=== PATIENT | female | born 1985 | race American Indian/Alaskan Native ===

== ENCOUNTER 2016-08-15 16:07 | Emergency (ER) | payer OTHER ==
[2016-08-15] MEDS ORDERED: NORVASC PO ONE (17:01)
--- NOTE | 2016-08-15 17:01 | Emergency Department Report ---
Chief Complaint: Headache Stated Complaint: MIGRAINE/ANXIETY Time Seen by Provider: 08/15/16 16:52 - HPI History of Present Illness: 30-year-old female comes in for complaint of migraines 3 days. Patient reports that she is he takes Excedrin for migraines usually helps but not at this time. She does admit to nausea but no vomiting. She does admit that she' s been drinking plenty of fluids. She does report having a history of hypertension on lisinopril 10 a hydrochlorothiazide 12.5. LMP 08/09/16 - Exam Vital Signs: Vital Signs 08/15/16 16:15 Temperature 98.6 F Pulse Rate 85 Respiratory 16 Rate Blood Pressure 184/127 O2 Sat by Pulse 99 Oximetry Physical Exam: Patient's alert and oriented 3 cardiovascular S1-S2 regular rate and rhythm respiratory clear to auscultation bilateral MSE screening note: Focused history and physical exam performed. Due to findings the following was ordered: Patient be evaluated in the main ER. ED Disposition for MSE Condition: Stable
[2016-08-16] MEDS ORDERED: MORPHINE IV ONE (02:56)
--- NOTE | 2016-08-16 03:42 | Emergency Department Report ---
HPI - General Chief Complaint: Headache Time Seen by Provider: 08/15/16 16:52 - HPI HPI: This is a 30-year-old Afro-[place]ish female presents to the emergency department , after being dropped off, with complaint of a migraine headache has been going on intermittently for the past 3 days. Patient says it is a left-sided throbbing sensation. She has a history of migraines but does not take anything prophylactically. She tried some Excedrin and Tylenol for her symptoms without any relief. She says she gets this migraine headache about 1-2 times per month. She denies any vision change, nausea, vomiting, fever, photophobia or any neurological deficits. Patient presents with elevated blood pressure but does have a history of hypertension. Her primary care doctor is a Dr. Rodriguez. No recent travel or sick contacts at home. ED Past Medical Hx - Past Medical History Hx Hypertension: Yes Hx Asthma: Yes - Social History Smoking Status: Never Smoker Substance Use Type: None - Medications Home Medications: Home Medications Medication Instructions Recorded Confirmed Last Taken Type Albuterol Sulfate [Ventolin HFA] 2 puff IH Q4H PRN #1 hfa.aer.ad 10/05/15 Unknown Rx Lisinopril/Hydrochlorothiazide 1 tab PO QDAY #30 tablet 10/05/15 08/16/16 Unknown Rx [Zestoretic 10-12.5 mg] ED Review of Systems ROS: Stated complaint: MIGRAINE/ANXIETY Other details as noted in HPI Comment: All other systems reviewed and negative Constitutional: denies: chills, fever Eyes: denies: eye pain, eye discharge, vision change ENT: denies: ear pain, throat pain Respiratory: denies: cough, shortness of breath, wheezing Cardiovascular: denies: chest pain, palpitations Gastrointestinal: denies: abdominal pain, nausea, diarrhea Genitourinary: denies: urgency, dysuria, discharge Musculoskeletal: denies: back pain, joint swelling, arthralgia Skin: denies: rash, lesions Neurological: headache. denies: weakness, paresthesias Physical Exam - Physical Exam Vital Signs: Vital Signs 08/15/16 08/15/16 08/16/16 16:15 17:05 00:09 Temperature 98.6 F 98.5 F Pulse Rate 85 72 Respiratory 16 20 Rate Blood Pressure 184/127 184/127 Blood Pressure 184/109 [Left] O2 Sat by Pulse 99 100 Oximetry Physical Exam: GENERAL: The patient is well-developed well-nourished. HEENT: Normocephalic. Atraumatic. Extraocular motions are intact. Patient has moist mucous membranes. Pupils equal reactive to light bilaterally. No nystagmus. NECK: Supple. Trachea is midline. CHEST/LUNGS: Clear to auscultation. There is no respiratory distress noted. HEART/CARDIOVASCULAR: Regular. There is no tachycardia. There is no gallop rub or murmur. ABDOMEN: Abdomen is soft, nontender. Patient has normal bowel sounds. There is no abdominal distention. Morbidly obese habitus. SKIN: There is no rash. There is no diaphoresis. NEURO: The patient is awake, alert, and oriented. The patient is cooperative. The patient has no focal neurologic deficits. The patient has normal speech. Cranial nerves II through XII grossly intact. No gait abnormalities. MUSCULOSKELETAL: There is no tenderness or deformity. There is no limitation range of motion. There is no evidence of acute injury. ED Course Vital Signs 08/15/16 08/15/16 08/16/16 16:15 17:05 00:09 Temperature 98.6 F 98.5 F Pulse Rate 85 72 Respiratory 16 20 Rate Blood Pressure 184/127 184/127 Blood Pressure 184/109 [Left] O2 Sat by Pulse 99 100 Oximetry ED Medical Decision Making - Medical Decision Making 30-year-old female presents with 3 day history of left-sided intermittent headache that appears consistent with previous migraines. Patient also presents with elevated blood pressure. Patient does not have any focal, motor or sensory deficits. Cranial nerves are intact. Patient was seen ambulatory in the emergency department and appears stable. Since this is consistent with the patient's previous migraine headaches, I did not feel that any CT imaging of the head was necessary at this time. Patient was given a single dose of pain medication and her blood pressure came down to a much more reasonable level , and the patient says that her headache completely resolved down to a 0 out of 10 on the pain scale. Patient appears stable and safe for discharge home at this time. She will follow-up with her primary care doctor and return to the ER with any worsening of her symptoms or any acute distress. - Differential Diagnosis migraine, tension headache, cluster headache, hypertensive urgency Critical Care Time: No Critical care attestation.: If time is entered above; I have spent that time in minutes in the direct care of this critically ill patient, excluding procedure time. ED Disposition Clinical Impression: Hypertension Qualifiers: Hypertension type: essential hypertension Qualified Code(s): I10 - Essential ( primary) hypertension Migraine headache Qualifiers: Migraine type: unspecified Status migrainosus presence: without status migrainosus Intractability: not intractable Qualified Code(s): G43.909 - Migraine, unspecified, not intractable, without status migrainosus Disposition: DISCHARGED TO HOME OR SELFCARE Is pt being admited?: No Condition: Good Instructions: Hypertension (ED), Migraine Headache (ED) Additional Instructions: Please follow-up with your primary care doctor in the next few days. Return to the emergency department with any worsening of your symptoms or any acute distress. Please try to stay away from foods that are high in salt and caffeinated products to assist with your elevated blood pressure. Keep a blood pressure log. Referrals: PRIMARY CAREMD [Primary Care Provider] - 3-5 Days Time of Disposition: 05:00
[2016-08-16] MEDS ORDERED: APRESOLINE IV ONE (04:42)
[2016-08-16 04:50] VITALS: BP 166/93
== END 2016-08-16 05:16 | disposition home or self-care (01) ==
LOC: ED 16:07
DX: G43.909 Migraine, unspecified, not intractable, without status migrainosus (principal); I10 Essential (primary) hypertension; J45.909 Unspecified asthma, uncomplicated
CPT/HCPCS: 96374; 99283; J2270

== ENCOUNTER 2016-12-08 12:54 | Emergency (ER) | payer OTHER ==
[2016-12-08] MEDS ORDERED: TYLENOL ONE (13:36)
[2016-12-08] MEDS ORDERED: TYLENOL PO ONE (13:37)
[2016-12-08] MEDS ORDERED: BICILLIN L-A IM ONE (14:47)
[2016-12-08] MEDS ORDERED: TORADOL IM ONE (14:47)
--- NOTE | 2016-12-08 14:57 | Emergency Department Report ---
ED ENT HPI - General Chief complaint: Sore Throat Stated complaint: PAIN TO SWALLOW/BODY ACHES Time Seen by Provider: 12/08/16 14:34 Source: patient Mode of arrival: Ambulatory Limitations: No Limitations - History of Present Illness Initial comments: PT c//o sore throat and congestion x 3 days. PT states she tried Alkeseltzer plus last night and she had tylnol this am at 0630 but no improvement. Pt also states she gets frequent raw spots under her arms and she has them now. PT states she does not know what they are. PT denies sick contacts. 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 denies: cough, rhinorrhea - Related Data Previous Rx's Medication Instructions Recorded Last Taken Type Albuterol Sulfate [Ventolin HFA] 2 puff IH Q4H PRN #1 hfa.aer.ad 10/05/15 Unknown Rx Lisinopril/Hydrochlorothiazide 1 tab PO QDAY #30 tablet 10/05/15 Unknown Rx [Zestoretic 10-12.5 mg] Clindamycin [Clindamycin CAP] 300 mg PO Q8H #21 cap 12/08/16 Unknown Rx Allergies Allergy/AdvReac Type Severity Reaction Status Date / Time No Known Allergies Allergy Unverified 08/15/16 16:22 ED Dental HPI - General Chief complaint: Sore Throat Stated complaint: PAIN TO SWALLOW/BODY ACHES Time Seen by Provider: 12/08/16 14:34 Source: patient Mode of arrival: Ambulatory Limitations: No Limitations - Related Data Previous Rx's Medication Instructions Recorded Last Taken Type Albuterol Sulfate [Ventolin HFA] 2 puff IH Q4H PRN #1 hfa.aer.ad 10/05/15 Unknown Rx Lisinopril/Hydrochlorothiazide 1 tab PO QDAY #30 tablet 10/05/15 Unknown Rx [Zestoretic 10-12.5 mg] Clindamycin [Clindamycin CAP] 300 mg PO Q8H #21 cap 12/08/16 Unknown Rx Allergies Allergy/AdvReac Type Severity Reaction Status Date / Time No Known Allergies Allergy Unverified 08/15/16 16:22 ED Review of Systems ROS: Stated complaint: PAIN TO SWALLOW/BODY ACHES Other details as noted in HPI Comment: All other systems reviewed and negative Constitutional: fever, malaise. denies: chills ENT: throat pain, congestion. denies: ear pain Respiratory: denies: cough Gastrointestinal: denies: abdominal pain, nausea, vomiting, diarrhea Genitourinary: denies: dysuria Musculoskeletal: myalgia Skin: rash ED Past Medical Hx - Past Medical History Hx Hypertension: Yes Hx Asthma: Yes - Surgical History Past Surgical History?: No - Social History Smoking Status: Never Smoker Substance Use Type: Alcohol - Medications Home Medications: Home Medications Medication Instructions Recorded Confirmed Last Taken Type Albuterol Sulfate [Ventolin HFA] 2 puff IH Q4H PRN #1 hfa.aer.ad 10/05/15 Unknown Rx Lisinopril/Hydrochlorothiazide 1 tab PO QDAY #30 tablet 10/05/15 08/16/16 Unknown Rx [Zestoretic 10-12.5 mg] Clindamycin [Clindamycin CAP] 300 mg PO Q8H #21 cap 12/08/16 Unknown Rx ED Physical Exam - General Limitations: No Limitations General appearance: alert, in no apparent distress, obese - Head Head exam: Present: atraumatic, normocephalic, normal inspection - Eye Eye exam: Present: normal appearance, EOMI. Absent: conjunctival injection - ENT ENT exam: Present: mucous membranes moist, TM's normal bilaterally, normal external ear exam - Expanded ENT Exam Expanded Mouth exam: Absent: drooling, trismus Throat exam: Positive: tonsillar erythema, tonsillomegaly, tonsillar exudate. Negative: R peritonsillar mass, L peritonsillar mass - Neck Neck exam: Present: normal inspection, tenderness, full ROM, lymphadenopathy. Absent: meningismus - Respiratory Respiratory exam: Present: normal lung sounds bilaterally. Absent: respiratory distress, wheezes, rales, rhonchi, stridor, chest wall tenderness - Cardiovascular Cardiovascular Exam: Present: normal rhythm, tachycardia - GI/Abdominal GI/Abdominal exam: Present: soft. Absent: tenderness - Extremities Exam Extremities exam: Present: normal inspection, full ROM. Absent: pedal edema - Back Exam Back exam: Present: normal inspection, full ROM. Absent: tenderness, CVA tenderness (R), CVA tenderness (L), muscle spasm, paraspinal tenderness, vertebral tenderness - Neurological Exam Neurological exam: Present: alert, oriented X3 - Psychiatric Psychiatric exam: Present: normal affect - Skin Skin exam: Present: warm, dry, normal color, other (oscar hidradenitis) ED Course Vital Signs 12/08/16 12/08/16 12/08/16 13:33 13:40 15:11 Temperature 101.9 F H Pulse Rate 106 H Respiratory 16 16 18 Rate Blood Pressure 150/109 Blood Pressure [Right] O2 Sat by Pulse 98 Oximetry 12/08/16 16:50 Temperature 100.5 F H Pulse Rate 83 Respiratory 20 Rate Blood Pressure Blood Pressure 146/102 [Right] O2 Sat by Pulse 96 Oximetry VS improved sp medication. PT is aware she should take her bp medication daily. - Reevaluation(s) Reevaluation #1: 12/08/16 15:03 PT aware of plan of care. No questions at this time Reevaluation #2: 12/08/16 16:19 PT states she is feeling better. PT aware of plan of care. No questions at this time. - Pulse Oximetry Interpretation Digit-Finger Initial Pulse Oximetry Readin Actions Taken: none ED Medical Decision Making - Differential Diagnosis strep pharyngitis, viral illness, abscess Critical Care Time: No Critical care attestation.: If time is entered above; I have spent that time in minutes in the direct care of this critically ill patient, excluding procedure time. ED Disposition Clinical Impression: Exudative pharyngitis, Hidradenitis suppurativa of left axilla, Hidradenitis suppurativa of right axilla Disposition: DISCHARGED TO HOME OR SELFCARE Is pt being admited?: No Does the pt Need Aspirin: No Condition: Stable Instructions: Strep Throat (ED), Abscess (ED) Additional Instructions: follow up with Surgeon or earrings fabricator for your skin condition Warm compresses to both armpits Take your bp medication daily Return to ED if worsening or concerns. OTC Motrin/ Tylenol as needed for pain Your sore throat is likely due to Strep throat and is contagious. Wash all of your dishes/ cups and change your toothbrush Prescriptions: Clindamycin [Clindamycin CAP] 300 mg PO Q8H #21 cap Referrals: PRIMARY CARE, [Primary Care Provider] - 3-5 Days SIVAN RUDOLPH MD [Staff Physician] - 3-5 Days KELLIE MOON MD [Staff Physician] - 3-5 Days Forms: Work/School Release Form(ED) Time of Disposition: 16:20
[2016-12-08 16:52] VITALS: BP 146/102
== END 2016-12-08 16:50 | disposition home or self-care (01) ==
LOC: ED 12:54
DX: L73.2 Hidradenitis suppurativa (principal); J02.9 Acute pharyngitis, unspecified; J45.909 Unspecified asthma, uncomplicated
CPT/HCPCS: 96372; 99282; J0561; J1885

== ENCOUNTER 2017-06-18 08:58 | Emergency (ER) | payer OTHER ==
--- NOTE | 2017-06-18 09:24 | Emergency Department Report ---
Chief Complaint: Anxiety Stated Complaint: ANXIETY - HPI History of Present Illness: p isia 31 y/o aam with hx of depression and htn, on selexa 20, lisonpril/hct: 20/25 mg po daily advises complaint with same , states increased paranoia , verbal altercation with coworkers, paranoia triggered buy loud noises, denies SI or HI but " I can't take it any more I know something is going to happen, I need help" denies other symptoms no h/a no dizziness, no headache, no light headedness no cp no sob. denies substance - Exam Vital Signs: Vital Signs 06/18/17 09:01 Temperature 99 F Pulse Rate 85 Respiratory 16 Rate Blood Pressure 195/123 O2 Sat by Pulse 100 Oximetry MSE screening note: Focused history and physical exam performed. Due to findings the following was ordered: ED Disposition for MSE Condition: Stable
[2017-06-18 10:06] LABS: Basophils % (Auto) 0.7 % (0.0-1.8); Eosinophils % (Auto) 0.4 % (0.0-4.3); Hematocrit 42.4 % (30.3-42.9); Hemoglobin 14.2 gm/dl (10.1-14.3); Mean Corpuscular HGB Conc 34 % (30-34); Mean Corpuscular Hemoglobin 29 pg (28-32); Mean Corpuscular Volume 86 fl (79-97); Platelet Count 278 K/mm3 (140-440); Red Blood Count 4.96 M/mm3 (3.65-5.03); Red Cell Distribution Width 14.2 % (13.2-15.2); White Blood Count 16.2 K/mm3 (4.5-11.0)
[2017-06-18 10:28] LABS: Alanine Aminotransferase 13 units/L (7-56); Albumin 4.1 g/dL (3.9-5); Albumin/Globulin Ratio 1.2 %; Alkaline Phosphatase 72 units/L (35-129); Anion Gap 20 mmol/L; BUN/Creatinine Ratio 23; Blood Urea Nitrogen 14 mg/dL (7-17); Calcium 9.1 mg/dL (8.4-10.2); Carbon Dioxide 21 mmol/L (22-30); Chloride 99.5 mmol/L (98-107); Glucose 203 mg/dL (65-100); Potassium 3.7 mmol/L (3.6-5.0); Sodium 137 mmol/L (137-145); Total Protein 7.5 g/dL (6.3-8.2)
[2017-06-18 12:01] VITALS: BP 178/122
[2017-06-18] MEDS: CATAPRES PO ONE (12:40)
[2017-06-18 12:49] LABS: Urine Drugs of Abuse Note Disclamer
[2017-06-18 12:59] LABS: Bacteria,Urine 1+ /HPF (Negative); Bilirubin,Urine NEG (Negative); Blood,Urine NEG (Negative); Ketones,Urine NEG (Negative); Leukocyte Esterase,Urine SM (Negative); Mucus,Urine FEW /HPF; Nitrite,Urine NEG (Negative); Urobilinogen,Urine < 2.0 mg/dL (<2.0)
--- NOTE | 2017-06-18 13:26 | Emergency Department Report ---
ED Psych HPI - General Chief Complaint: Anxiety Stated Complaint: ANXIETY Time Seen by Provider: 06/18/17 11:36 Source: patient Mode of arrival: Ambulatory - History of Present Illness Initial Comments: Patient states she has an appointment with her counselor at 3 PM today. She tells me that she is here for anxiety. She is taking Celexa. She states that she has had a history of depression but is denying depression right now. Apparently she told the screening PA that she had some feelings of paranoia at work. She denies any paranoid ideation to me now. She denied suicidal or homicidal thoughts. She is not agitated. I repeatedly asked her if there was any other reason that she came to the emergency room beyond "anxiety"and she denied this. She was found to have a blood pressure 195/123 on arrival. She admitted to me that she was completely noncompliant with her blood pressure medicine which is lisinopril/HCTZ. Complaint: other ("anxiety") -: year(s) Associated Psychiatric Symptoms: other History of same: Yes Quality: intermittent Improves With: none Worsens With: none Context: other (noncompliant with medication) Associated Symptoms: denies other symptoms Treatments Prior to Arrival: none - Related Data Previous Rx's Medication Instructions Recorded Last Taken Type Albuterol Sulfate [Ventolin HFA] 2 puff IH Q4H PRN #1 hfa.aer.ad 10/05/15 Unknown Rx Lisinopril/Hydrochlorothiazide 1 tab PO QDAY #30 tablet 10/05/15 Unknown Rx [Zestoretic 10-12.5 mg] Clindamycin [Clindamycin CAP] 300 mg PO Q8H #21 cap 12/08/16 Unknown Rx Cefuroxime [Ceftin] 250 mg PO Q12H #14 tablet 06/18/17 Unknown Rx Allergies Allergy/AdvReac Type Severity Reaction Status Date / Time No Known Allergies Allergy Unverified 08/15/16 16:22 ED Review of Systems ROS: Stated complaint: ANXIETY Other details as noted in HPI Constitutional: denies: chills, fever Eyes: denies: eye pain, eye discharge, vision change ENT: denies: ear pain, throat pain Respiratory: denies: cough, shortness of breath, wheezing Cardiovascular: denies: chest pain, palpitations Endocrine: no symptoms reported Gastrointestinal: denies: abdominal pain, nausea, diarrhea Genitourinary: denies: urgency, dysuria, discharge Musculoskeletal: denies: back pain, joint swelling, arthralgia Skin: denies: rash, lesions Neurological: denies: headache, weakness, paresthesias Psychiatric: as per HPI. denies: anxiety, depression (not complaining of active depression now), auditory hallucinations, visual hallucinations, homicidal thoughts, suicidal thoughts Hematological/Lymphatic: denies: easy bleeding, easy bruising ED Past Medical Hx - Past Medical History Previous Medical History?: Yes Hx Hypertension: Yes Hx Asthma: Yes - Surgical History Past Surgical History?: No - Social History Smoking Status: Never Smoker Substance Use Type: Alcohol - Medications Home Medications: Home Medications Medication Instructions Recorded Confirmed Last Taken Type Albuterol Sulfate [Ventolin HFA] 2 puff IH Q4H PRN #1 hfa.aer.ad 10/05/15 Unknown Rx Lisinopril/Hydrochlorothiazide 1 tab PO QDAY #30 tablet 10/05/15 08/16/16 Unknown Rx [Zestoretic 10-12.5 mg] Clindamycin [Clindamycin CAP] 300 mg PO Q8H #21 cap 12/08/16 Unknown Rx Cefuroxime [Ceftin] 250 mg PO Q12H #14 tablet 06/18/17 Unknown Rx ED Physical Exam - General Limitations: No Limitations General appearance: alert, in no apparent distress - Head Head exam: Present: atraumatic, normocephalic - Eye Eye exam: Present: normal appearance, PERRL, EOMI. Absent: scleral icterus - ENT ENT exam: Present: mucous membranes moist - Neck Neck exam: Present: normal inspection - Respiratory Respiratory exam: Present: normal lung sounds bilaterally. Absent: respiratory distress - Cardiovascular Cardiovascular Exam: Present: regular rate, normal rhythm. Absent: systolic murmur, diastolic murmur, rubs, gallop - GI/Abdominal GI/Abdominal exam: Present: soft, normal bowel sounds. Absent: distended, tenderness, guarding, rebound, rigid - Extremities Exam Extremities exam: Present: normal inspection - Back Exam Back exam: Present: normal inspection - Neurological Exam Neurological exam: Present: alert, oriented X3, CN II-XII intact. Absent: motor sensory deficit - Psychiatric Psychiatric exam: Present: normal mood, flat affect - Skin Skin exam: Present: warm, dry, intact, normal color. Absent: rash ED Course Vital Signs 06/18/17 06/18/17 09:01 12:00 Temperature 99 F 98.3 F Pulse Rate 85 85 Respiratory 16 18 Rate Blood Pressure 195/123 Blood Pressure 178/122 [Left] O2 Sat by Pulse 100 100 Oximetry - Reevaluation(s) Reevaluation #1: The patient was given 0.2 of clonidine. On repeat her blood pressure was 160/ 85. She is recently reasonable target for discharge. On reexamination I found the patient sleeping. She generally did not need medicine for anxiety. I asked her again concerning any other criteria for involuntary confinement and she had none. She does have a pre-existing relationship with a mental health provider. She will be discharged to see that mental health provider at 3 PM today. I have discussed her noncompliance with her blood pressure medicine. 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 I have emphasized the importance of compliance with her blood pressure medicine and seeing her mental health provider today at 3. 06/18/17 13:24 ED Medical Decision Making - Lab Data Result diagrams: 06/18/17 09:46 06/18/17 09:46 Laboratory Results - last 24 hr 06/18/17 06/18/17 06/18/17 09:46 09:46 12:45 WBC 16.2 H RBC 4.96 Hgb 14.2 Hct 42.4 MCV 86 MCH 29 MCHC 34 RDW 14.2 Plt Count 278 Lymph % (Auto) 18.1 [place] % (Auto) 3.8 Eos % (Auto) 0.4 Baso % (Auto) 0.7 Lymph # 2.9 [place] # 0.6 Eos # 0.1 Baso # 0.1 Seg Neutrophils % 77.0 H Seg Neutrophils # 12.5 H Sodium 137 Potassium 3.7 Chloride 99.5 Carbon Dioxide 21 L Anion Gap 20 BUN 14 Creatinine 0.6 L Estimated GFR > 60 BUN/Creatinine Ratio 23 Glucose 203 H Calcium 9.1 Total Bilirubin 0.20 AST 12 ALT 13 Alkaline Phosphatase 72 Total Protein 7.5 Albumin 4.1 Albumin/Globulin Ratio 1.2 Urine Color Yellow Urine Turbidity Clear Urine pH 5.0 Ur Specific [place] 1.030 Urine Protein 100 mg/dl Urine Glucose (UA) 50 Urine Ketones Neg Urine Blood Neg Urine Nitrite Neg Urine Bilirubin Neg Urine Urobilinogen < 2.0 Ur Leukocyte Esterase Sm Urine WBC (Auto) 19.0 H Urine RBC (Auto) 7.0 U Epithel Cells (Auto) 13.0 Urine Bacteria (Auto) 1+ Urine Mucus Few Urine HCG, Qual Negative Urine Opiates Screen Urine Methadone Screen Ur Barbiturates Screen Ur Phencyclidine Scrn Ur Amphetamines Screen U Benzodiazepines Scrn Urine Cocaine Screen U Marijuana (THC) Screen 06/18/17 12:45 WBC RBC Hgb Hct MCV MCH MCHC RDW Plt Count Lymph % (Auto) [place] % (Auto) Eos % (Auto) Baso % (Auto) Lymph # [place] # Eos # Baso # Seg Neutrophils % Seg Neutrophils # Sodium Potassium Chloride Carbon Dioxide Anion Gap BUN Creatinine Estimated GFR BUN/Creatinine Ratio Glucose Calcium Total Bilirubin AST ALT Alkaline Phosphatase Total Protein Albumin Albumin/Globulin Ratio Urine Color Urine Turbidity Urine pH Ur Specific [place] Urine Protein Urine Glucose (UA) Urine Ketones Urine Blood Urine Nitrite Urine Bilirubin Urine Urobilinogen Ur Leukocyte Esterase Urine WBC (Auto) Urine RBC (Auto) U Epithel Cells (Auto) Urine Bacteria (Auto) Urine Mucus Urine HCG, Qual Urine Opiates Screen Presumptive negative Urine Methadone Screen Presumptive negative Ur Barbiturates Screen Presumptive negative Ur Phencyclidine Scrn Presumptive negative Ur Amphetamines Screen Presumptive negative U Benzodiazepines Scrn Presumptive negative Urine Cocaine Screen Presumptive negative U Marijuana (THC) Screen Presumptive negative Critical care attestation.: If time is entered above; I have spent that time in minutes in the direct care of this critically ill patient, excluding procedure time. ED Disposition Clinical Impression: Essential hypertension, Psychiatric disorder UTI (urinary tract infection) Qualifiers: Urinary tract infection type: site unspecified Hematuria presence: without hematuria Qualified Code(s): N39.0 - Urinary tract infection, site not specified Disposition: TO HOME OR SELFCARE Is pt being admited?: No Does the pt Need Aspirin: No Condition: Stable Instructions: Urinary Tract Infection in Women (ED), Depression (ED), Dysthymic Disorder (ED), Suicide Prevention for Adults (ED), Hypertension (ED) Additional Instructions: See your mental health provider at 3 PM. You do appear to have a urinary tract infection. Follow up with your primary care provider on this course outside medical clinic. A urine culture was sent which will take 2-3 days to complete. Follow instructions, Rx as directed. Return any acute change or problem. Prescriptions: Cefuroxime [Ceftin] 250 mg PO Q12H #14 tablet Referrals: PRIMARY CARE,MD [Primary Care Provider] - 3-5 Days usual, psychiatric provider [Other] - 3-5 Days Time of Disposition: 13:28
[2017-06-18] MEDS ORDERED: XYLOCAINE 1% MPF 5 mL INFILTRATI ONE (13:54)
[2017-06-18] MEDS ORDERED: ROCEPHIN IM ONE (13:54)
== END 2017-06-18 14:25 | disposition home or self-care (01) ==
LOC: ED 08:58
DX: F99 Mental disorder, not otherwise specified (principal); N39.0 Urinary tract infection, site not specified; I10 Essential (primary) hypertension; J45.909 Unspecified asthma, uncomplicated
CPT/HCPCS: 36415; 80053; 80307; 81001; 81025; 85025; 99283